=== PATIENT | female | born 1950 | race Caucasian/White ===

== ENCOUNTER 2017-04-17 11:31 | Inpatient (IN) | payer OTHER ==
[~2017-04-17] VITALS: Ht 149.9 cm; Wt 81.6 kg
[~2017-04-17 11:31] MED LIST: AMOX1TAB12 PO; AVAPRO150 MG PO; CIPRO750 MG PO; CIPROFLOXACIN750 MG PO; CLONAZEPAM1 MG PO; COLACE100 MG PO; Colace 100MG PO; DOCUSATE SODIU100 MG PO; FOLIC ACID1 MG PO; GABAPENTIN800 MG PO; MEDROLPACK PO; METFORMIN HCL500 MG PO; METHYLPRED4 MG/DOSE- PO; MOTRIN50 MG/1.25 PO; NEURONTIN PO; NEURONTIN800 MG PO; PERCOCET 5-3251 EACH PO; PERCOCET 5/3251 TAB PO; PROTONIX40 MG PO; RESTORIL30 M1 PO; TYLENOL W/CODEI1 TAB PO; VITAMIN D400 UNIT PO; Zolpidem Tartrate 10MG PO
== END 2017-05-01 16:27 | DRG 907 ==
LOC: ER 11:31 → SURH 17:18
PROVIDERS: Orthopaedic Surgery Orthopaedic Surgery of the Spine
PROC: BR29ZZZ Computerized Tomography (CT Scan) of Lumbar Spine (ICD-10-PCS; 2017-04-17)
PROC: 00NY0ZZ Release Lumbar Spinal Cord, Open Approach (ICD-10-PCS; 2017-04-18)
PROC: 0SP00AZ Removal of Interbody Fusion Device from Lumbar Vertebral Joint, Open Approach (ICD-10-PCS; 2017-04-18)
PROC: 8E0ZXY6 Isolation (ICD-10-PCS; 2017-04-18)
PROC: 0QB00ZZ Excision of Lumbar Vertebra, Open Approach (ICD-10-PCS; principal; 2017-04-18 15:45)
PROC: 0QB00ZZ Excision of Lumbar Vertebra, Open Approach (ICD-10-PCS; 2017-04-20)
PROC: 02HV33Z Insertion of Infusion Device into Superior Vena Cava, Percutaneous Approach (ICD-10-PCS; 2017-04-20)
PROC: 30233N1 Transfusion of Nonautologous Red Blood Cells into Peripheral Vein, Percutaneous Approach (ICD-10-PCS; 2017-04-23)
DX: L76.34 Postprocedural seroma of skin and subcutaneous tissue following other procedure (principal); G06.1 Intraspinal abscess and granuloma; T81.4XXA Infection following a procedure, initial encounter; N17.8 Other acute kidney failure; Y83.8 Other surgical procedures as the cause of abnormal reaction of the patient, or of later complication, without mention of misadventure at the time of the procedure; Y92.098 Other place in other non-institutional residence as the place of occurrence of the external cause; I10 Essential (primary) hypertension; E11.9 Type 2 diabetes mellitus without complications; M48.061 Spinal stenosis, lumbar region without neurogenic claudication; B95.62 Methicillin resistant Staphylococcus aureus infection as the cause of diseases classified elsewhere; B96.4 Proteus (mirabilis) (morganii) as the cause of diseases classified elsewhere; K21.9 Gastro-esophageal reflux disease without esophagitis; M43.17 Spondylolisthesis, lumbosacral region; M51.17 Intervertebral disc disorders with radiculopathy, lumbosacral region; D64.89 Other specified anemias; E87.6 Hypokalemia

== ENCOUNTER 2017-05-05 16:22 | Emergency (ER) | payer OTHER ==
[~2017-05-05] VITALS: Ht 149.9 cm; Wt 79.4 kg
== END 2017-05-05 18:03 | disposition home or self-care (01) ==
LOC: ER 16:22
DX: I82.492 Acute embolism and thrombosis of other specified deep vein of left lower extremity (principal); R60.0 Localized edema

== ENCOUNTER 2017-05-06 08:01 | Emergency (ER) | payer OTHER ==
[~2017-05-06] VITALS: Ht 149.9 cm; Wt 79.4 kg
== END 2017-05-06 15:59 | disposition home or self-care (01) ==
LOC: ER 08:01
DX: I82.492 Acute embolism and thrombosis of other specified deep vein of left lower extremity (principal); E87.6 Hypokalemia

== ENCOUNTER 2021-01-12 08:00 | Outpatient (CLI) | payer OTHER | END 2021-01-12 08:30 | disposition home or self-care (01) | LOC: PPH VACUNA 08:00 | PROVIDERS: ATTEND Emergency Medicine Pediatric Emergency Medicine | DX: Z23 Encounter for immunization (principal) ==

== ENCOUNTER 2021-08-03 08:00 | Outpatient (CLI) | payer OTHER | END 2021-08-03 08:30 | disposition home or self-care (01) | LOC: PPH VACUNA 08:00 | PROVIDERS: ATTEND Emergency Medicine Pediatric Emergency Medicine | DX: Z23 Encounter for immunization (principal) ==